=== PATIENT | male | born 1960 ===

== ENCOUNTER 2024-08-14 19:38 | Observation (INO) | payer OTHER ==
[~2024-08-14] VITALS: Ht 152.4 cm; Wt 66.2 kg
--- NOTE | 2024-08-14 22:30 | NUR ---
ARRIVAL TO SURGICAL UNIT. PT ARRIVED VIA TRANSPORT [facility] AT 2227. PT IS A DIRECT ADMIT FROM [facility] [place] FOR FORIEGN BODY FOOD IN ESOPHAGUS. PT HAS ESTABLISHED IV ACCESS IN LEFT AC. PT AMBULATORY AND A/OX4. ORIENTED PT TO UNIT AND CALL LIGHT. PT HAS A VAPE PEN THAT HAS BEEN LOCKED ON UNIT IN PT'S DRAWER. PT VERBALIZED UNDERSTANDING OF NO SMOKING POLICY.
[2024-08-14] MEDS ORDERED: QUET100 PO (22:37)
[2024-08-14] MEDS ORDERED: LEVSOD25 PO (22:39)
[2024-08-14 22:44] VITALS: BP 148/85
[2024-08-14] MEDS ORDERED: Acetaminophen 325 MG TABLET PO PRN (23:05)
[2024-08-14] MEDS ORDERED: Ondansetron HCl 2 MG / ML 2ML Vial IV PRN (23:05)
[2024-08-14] MEDS ORDERED: FLU VACC TS2024-25(6MOS UP)/PF 45 MCG/0.5 ML SYRINGE IM ONE (23:05)
[2024-08-14] MEDS ORDERED: Lactated Ringer's 1,000 ML IV SCH (23:13)
[2024-08-15] VITALS (39 sets, daily range): BP systolic 102–149; BP diastolic 60–100
[2024-08-15] MEDS ORDERED: NS 500 ML IV SCH (00:05)
[2024-08-15] MEDS ORDERED: Midazolam HCl 1MG / ML 2ML Vial ONE (00:10)
[2024-08-15] MEDS ORDERED: propofoL 60 ML IV ONE (00:10)
--- NOTE | 2024-08-15 00:19 | NUR ---
PT LEFT THE UNIT AT 0019 WITH SURGERY STAFF TEAM MEMBERS.
--- NOTE | 2024-08-15 00:40 | NUR ---
08/15/24 0040 Julio Vargas CONFIRMED AND REVIEWED H&P, MEDCICATIONS, ALLERGIES, MEDICAL HISTORY, RESPIRATORY HISTORY, VITAL SIGNS, 3-LEAD EKG, CONSENTS, AND PHYSICIAN ORDERS. PATIENT CONFIRMS NPO STATUS AND AGREES WITH SCHEDULED PROCEDURE. MONITOR INTACT WITH CONTINUOUS PULSE OXIMETRY, CAPNOGRAPHY, 3-LEAD EKG, INTERMITTENT BP. SUPPLEMENTAL O2 TO BE TITRATED THROUGHOUT PROCEDURE TO MAINTAIN O2 SATURATION ABOVE 90%. PATIENT DETERMINED TO BE ASA APPROPRIATE FOR PROPOFOL SEDATION PRIOR TO START OF PROCEDURE BY DR. JENKINS.
[2024-08-15] MEDS ORDERED: Ondansetron HCl 2 MG / ML 2ML Vial ONE (00:56)
--- NOTE | 2024-08-15 01:52 | NUR ---
ARRIVAL BACK TO ROOM 210 FROM PROCEDURE AT 0145. PT DROWSY, BED ALARM SET FOR SAFETY. CALL LIGHT IN REACH.
[2024-08-15 04:39] LABS: BASOPHILS ABSOLUTE AUTO 0.03 K/mm3 (0.00-0.23); BASOPHILS PERCENT AUTO 0 % (0-2); EOSINOPHILS ABSOLUTE AUTO 0.13 K/mm3 (0.00-0.68); EOSINOPHILS PERCENT AUTO 1 % (0-6); Hematocrit 40.7 % (37.0-53.0); Hemoglobin 13.8 g/dL (13.5-17.5); IMMATURE GRAN ABSOLUTE AUTO 0.03 K/mm3 (0.00-0.10); IMMATURE GRAN PERCENT AUTO 0 % (0-1); LYMPHOCYTES ABSOLUTE AUTO 2.25 K/mm3 (0.84-5.20); LYMPHOCYTES PERCENT AUTO 22 % (21-46); MONOCYTES ABSOLUTE AUTO 0.72 K/mm3 (0.16-1.47); MONOCYTES PERCENT AUTO 7 % (4-13); Mean Corpuscular HGB 30.9 pg (26.0-34.0); Mean Corpuscular HGB Conc 33.9 g/dL (31.5-36.5); Mean Corpuscular Volume 91 fL (80-100); NEUTROPHILS ABSOLUTE AUTO 7.27 K/mm3 (1.96-9.15); NEUTROPHILS PERCENT AUTO 70 % (41-73); Platelet Count 294 K/mm3 (150-400); RDW Standard Deviation 43.8 fL (35.1-46.3); Red Blood Cell Count 4.46 M/mm3 (4.30-5.90); White Blood Cell Count 10.43 K/mm3 (4.00-11.30)
[2024-08-15 05:02] LABS: Albumin, Blood 3.4 g/dL (3.4-5.0); Albumin/Globulin Ratio 1.2 (0.8-1.8); Bilirubin, Total 2.5 mg/dL (0.1-1.0); Bun/Creatinine Ratio 19.2 (12.0-20.0); Calcium, Blood 8.5 mg/dL (8.5-10.1); Creatinine, Blood 0.83 mg/dL (0.60-1.20); Globulin, Blood 2.8 g/dL (2.2-4.0); Magnesium, Blood 2.1 mg/dL (1.6-2.4); Potassium, Blood 3.9 mmol/L (3.5-5.5); Total Protein, Blood 6.2 g/dL (6.4-8.2)
[2024-08-15] MEDS ORDERED: Omeprazole 20 MG CapCR PO SCH ×2 (06:00)
--- NOTE | 2024-08-15 06:24 | NUR ---
SHIFT SUMMARY NOC. PT A/O X4. PT POD 0 FOR FOREIGN REMOVAL/SCOPE WITH DR. JENKINS. VSS. PT REPORTS MILD THROAT DISCOMFORT BUT STATES IS TOLERABLE. NO SOB OR DIFFICULTY BREATHING. PT VOIDING URINE AND TOLERATING CLEAR LIQUIDS AT THIS TIME. PT MAKES NEEDS KNOWN, CALL LIGHT IN REACH.
[2024-08-15] MEDS ORDERED: OMEP20ER (12:19)
[2024-08-15] MEDS ORDERED: OMEP20ER PO (12:20)
--- NOTE | 2024-08-15 14:43 | NUR ---
DISCHARGE PT WAS PROVIDED WITH WRITTEN AND VERBAL DISCHARGE INSTRUCTIONS, PT REPORTED UNDERSTANDING. PT STATED THAT HE WANTED TO DISCHARGE PRIOR TO HIS TRANSPORTATION ARRIVING SO HE COULD LEAVE HOSPITAL CAMPUS AND USE HIS VAPE PEN. PT EDUCATED THAT ONCE HE IS DISCHARGED HE CANNOT RETURN TO HIS ROOM. PT REPORTED UNDERSTANDING. PT ALSO EDUCATED THAT ONCE HE IS DISCHARGED HE WILL NEED TO BE RESPONSIBLE TO COMMUNITCATE HIS LOCATION WITH HIS FAMILY WHEN THEY ARRIVE TO PICK HIM UP, HE VERBALIZED UNDERSTANDING. PT'S PRESCRIPTION WAS FAXED TO [facility] ON [address] IN [place] PER PT REQUEST. VSS PRIOR TO DISCHARGE. PT LEFT AT APPROXIMATELY 1316.
== END 2024-08-15 13:16 | disposition home or self-care (01) ==
LOC: SURS 19:38
PROVIDERS: Student in an Organized Health Care Education/Training Program; ADMIT Internal Medicine
PROC: 0DB38ZX Excision of Lower Esophagus, Via Natural or Artificial Opening Endoscopic, Diagnostic (ICD-10-PCS; principal; 2024-08-15)
PROC: 0DB68ZX Excision of Stomach, Via Natural or Artificial Opening Endoscopic, Diagnostic (ICD-10-PCS; principal; 2024-08-15)
PROC: 0D738ZZ Dilation of Lower Esophagus, Via Natural or Artificial Opening Endoscopic (ICD-10-PCS; principal; 2024-08-15)
PROC: 0DB28ZX Excision of Middle Esophagus, Via Natural or Artificial Opening Endoscopic, Diagnostic (ICD-10-PCS; principal; 2024-08-15)
PROC: 0DC28ZZ Extirpation of Matter from Middle Esophagus, Via Natural or Artificial Opening Endoscopic (ICD-10-PCS; principal; 2024-08-15)
DX: T18.128A Food in esophagus causing other injury, initial encounter (principal); K29.50 Unspecified chronic gastritis without bleeding; B96.81 Helicobacter pylori [H. pylori] as the cause of diseases classified elsewhere; F31.9 Bipolar disorder, unspecified; E03.9 Hypothyroidism, unspecified; E78.5 Hyperlipidemia, unspecified; F17.290 Nicotine dependence, other tobacco product, uncomplicated; Z66 Do not resuscitate; Z79.899 Other long term (current) drug therapy
CPT/HCPCS: 36415; 80053; 83735; 85025; 88305; 88342; 92610; 94762; A9270; G0378; J2250; J2405; J2704; J7040; J7120